=== PATIENT | male | born 1955 | race American Indian/Alaskan Native ===

== ENCOUNTER 2018-11-10 07:08 | Emergency (ER) | payer MEDICAID ==
[2018-11-10 07:21] VITALS: BMI 25.0
[2018-11-10 07:41] VITALS: RESP 18
[2018-11-10 08:22] LABS: BASO % 1.2 % (0.0-2.0); EOS # 0.1 K/uL (0.0-0.7); EOS % 2.9 % (0.0-4.0); LYMPH # 1.4 K/uL (1.0-4.3); LYMPH % 47.2 % (20.0-40.0); MEAN CELL VOLUME 86.9 fL (80.0-94.0); MEAN CORPUSCULAR HEMOGLOBIN 28.3 pg (27.0-31.0); MEAN CORPUSCULAR HGB CONC 32.6 g/dL (33.0-37.0); MEAN PLATELET VOLUME 7.8 fL (7.2-11.7); MONO # 0.5 K/uL (0.0-0.8); MONO % 17.1 % (0.0-10.0); NEUT # 0.9 K/uL (1.8-7.0); NEUT % 31.6 % (50.0-75.0); NRBC % 0.2 % (0.0-2.0); RBC 5.64 Mil/uL (4.40-5.90); RED CELL DISTRIBUTION WIDTH 13.7 % (11.5-14.5); WHITE BLOOD COUNT 2.9 K/uL (4.8-10.8)
[2018-11-10 08:42] LABS: SQUAMOUS EPITHIAL < 1 /hpf (0-5); URINE BILIRUBIN NEGATIVE (NEGATIVE); URINE BLOOD NEGATIVE (NEGATIVE); URINE CLARITY Hazy (Clear); URINE COLOR Yellow (YELLOW); URINE GLUCOSE (UA) NORMAL (Normal); URINE LEUKOCYTE ESTERASE NEG Leu/uL (Negative); URINE PROTEIN NEGATIVE (NEGATIVE)
[2018-11-10 08:52] LABS: ALB/GLOB RATIO 1.3 (1.0-2.1); ALBUMIN 4.2 g/dL (3.5-5.0); ALT/SGPT 22 U/L (21-72); AST/SGOT 29 U/L (17-59); BLOOD UREA NITROGEN 14 mg/dL (9-20); CALCIUM 9.1 mg/dl (8.6-10.4); GFR NON-AFRICAN AMERICAN > 60
[2018-11-10 09:21] LABS: B-TYPE NATRIURETIC PEPTIDE 55.3 pg/mL (0-900)
[2018-11-10 09:22] LABS: BARBITURATES, UR NEGATIVE (NEGATIVE); BENZODIAZEPINES, UR NEGATIVE (NEGATIVE); OPIATES, UR NEGATIVE (NEGATIVE); PHENCYCLIDINE, UR NEGATIVE (NEGATIVE)
[2018-11-10 09:34] VITALS: BP 116/74; PULSE 66; TEMP 98.5; O2SAT 97
--- NOTE | 2018-11-10 09:55 | C.PDOC ---
History Of Present Illness 63 y/o male,w/PMhx of asthma, presents to the ER complaining of runny nose and productive cough w/ yellow and brown phlegm which has been present for the past 3 days. Patient states that he has chest pain with cough. Patient reports that he has night sweats. He notes that he has history of smoking. Denies having fever,chills, SOB, nausea, vomiting, and abdominal pain. Time Seen by Provider: 11/10/18 07:32 Chief Complaint (Nursing): Chest Pain History Per: Patient History/Exam Limitations: no limitations Onset/Duration Of Symptoms: Days Current Symptoms Are (Timing): Still Present Severity: Moderate Past Medical History Reviewed: Historical Data, Nursing Documentation, Vital Signs Vital Signs: Last Vital Signs Temp 98.5 F 11/10/18 09:33 Pulse 66 11/10/18 09:33 Resp 18 11/10/18 09:33 BP 116/74 11/10/18 09:33 Pulse Ox 97 11/10/18 09:33 - Medical History PMH: Anxiety, Asthma, Depression, HTN, Hypercholesterolemia, Obstructive Bowel (SURGERY (1995)), Schizophrenia Other Surgeries: Hx of surgeries Family History: States: No Known Family Hx - Social History Hx Alcohol Use: No Hx Substance Use: Yes - Immunization History Hx Tetanus Toxoid Vaccination: No Hx Influenza Vaccination: No Hx Pneumococcal Vaccination: No Review Of Systems Except As Marked, All Systems Reviewed And Found Negative. Constitutional: Positive for: Sweats. Negative for: Fever, Chills Cardiovascular: Positive for: Chest Pain (with cough) Respiratory: Positive for: Cough. Negative for: Shortness of Breath Gastrointestinal: Negative for: Nausea, Vomiting, Abdominal Pain Physical Exam - Physical Exam Appears: Non-toxic, No Acute Distress Skin: Normal Color, Warm, Dry Head: Atraumatic, Normacephalic Eye(s): bilateral: Normal Inspection Nose: Normal Oral Mucosa: Moist Throat: Normal, No Erythema, No Exudate Neck: Supple Chest: Symmetrical Cardiovascular: Rhythm Regular Respiratory: Normal Breath Sounds, No Rales, No Rhonchi, No Wheezing Gastrointestinal/Abdominal: Normal Exam, Soft, No Tenderness, No Guarding, No Rebound Neurological/Psych: Oriented x3, Normal Speech ED Course And Treatment - Laboratory Results Result Diagrams: 11/10/18 08:13 11/10/18 08:13 Lab Results: Troponin I < 0.0120 ng/mL (0.00-0.120) 11/10/18 08:13 NT-Pro-B Natriuret Pep 55.3 pg/mL (0-900) 11/10/18 08:13 Total Bilirubin 0.8 mg/dL (0.2-1.3) 11/10/18 08:13 AST 29 U/L (17-59) 11/10/18 08:13 ALT 22 U/L (21-72) 11/10/18 08:13 Alkaline Phosphatase 57 U/L (38-126) 11/10/18 08:13 Total Protein 7.4 g/dL (6.3-8.3) 11/10/18 08:13 Albumin 4.2 g/dL (3.5-5.0) 11/10/18 08:13 Globulin 3.2 gm/dL (2.2-3.9) 11/10/18 08:13 Albumin/Globulin Ratio 1.3 (1.0-2.1) 11/10/18 08:13 Urine Color Yellow (YELLOW) 11/10/18 08:21 Urine Clarity Hazy (Clear) 11/10/18 08:21 Urine pH 7.0 (5.0-8.0) 11/10/18 08:21 Ur Specific [place] 1.020 (1.003-1.030) 11/10/18 08:21 Urine Protein Negative mg/dL (NEGATIVE) 11/10/18 08:21 Urine Glucose (UA) Normal mg/dL (Normal) 11/10/18 08:21 Urine Ketones Negative mg/dL (NEGATIVE) 11/10/18 08:21 Urine Blood Negative (NEGATIVE) 11/10/18 08:21 Urine Nitrate Negative (NEGATIVE) 11/10/18 08:21 Urine Bilirubin Negative (NEGATIVE) 11/10/18 08:21 Urine Urobilinogen 4.0 mg/dL (0.2-1.0) 11/10/18 08:21 Ur Leukocyte Esterase Neg Danilo/uL (Negative) 11/10/18 08:21 Urine WBC (Auto) 1 /hpf (0-5) 11/10/18 08:21 Urine RBC (Auto) < 1 /hpf (0-3) 11/10/18 08:21 Ur Squamous Epith Cells < 1 /hpf (0-5) 11/10/18 08:21 O2 Sat by Pulse Oximetry: 97 (RA) Pulse Ox Interpretation: Normal Medical Decision Making Medical Decision Making: Plan: --Labs --UA --CXR Disposition - Disposition Referrals: [facility] at [facility] [Outside] Prescriptions: Benzonatate [Tessalon Perles] 200 mg PO TID #15 sgl Ibuprofen [Motrin] 600 mg PO TID #15 tab Oseltamivir Phosphate [Tamiflu] 75 mg PO DAILY #10 capsule Instructions: Flu, Adult (DC) Forms: General Discharge Instructions, [facility] ([place]) - Clinical Impression Clinical Impression: Influenza-like symptoms - Scribe Statement The provider has reviewed the documentation as recorded by the Faraibe Marylou Lai Provider Attestation: All medical record entries made by the Scribe were at my direction and personally dictated by me. I have reviewed the chart and agree that the record accurately reflects my personal performance of the history, physical exam, m edical decision making, and the department course for this patient. I have also personally directed, reviewed, and agree with the discharge instructions and disposition.
--- NOTE | 2018-11-10 09:58 | C.PDOC ---
Time Seen by Provider: 11/10/18 07:32 Chief Complaint (Nursing): Chest Pain Past Medical History Vital Signs: Last Vital Signs Temp 98.5 F 11/10/18 09:33 Pulse 66 11/10/18 09:33 Resp 18 11/10/18 09:33 BP 116/74 11/10/18 09:33 Pulse Ox 97 11/10/18 09:33 - Medical History PMH: Anxiety, Asthma, Depression, HTN, Hypercholesterolemia, Obstructive Bowel (SURGERY (1995)), Schizophrenia - Social History Hx Alcohol Use: No Hx Substance Use: Yes - Immunization History Hx Tetanus Toxoid Vaccination: No Hx Influenza Vaccination: No Hx Pneumococcal Vaccination: No ED Course And Treatment - Laboratory Results Result Diagrams: 11/10/18 08:13 11/10/18 08:13 Lab Results: Troponin I < 0.0120 ng/mL (0.00-0.120) 11/10/18 08:13 NT-Pro-B Natriuret Pep 55.3 pg/mL (0-900) 11/10/18 08:13 Total Bilirubin 0.8 mg/dL (0.2-1.3) 11/10/18 08:13 AST 29 U/L (17-59) 11/10/18 08:13 ALT 22 U/L (21-72) 11/10/18 08:13 Alkaline Phosphatase 57 U/L (38-126) 11/10/18 08:13 Total Protein 7.4 g/dL (6.3-8.3) 11/10/18 08:13 Albumin 4.2 g/dL (3.5-5.0) 11/10/18 08:13 Globulin 3.2 gm/dL (2.2-3.9) 11/10/18 08:13 Albumin/Globulin Ratio 1.3 (1.0-2.1) 11/10/18 08:13 Urine Color Yellow (YELLOW) 11/10/18 08:21 Urine Clarity Hazy (Clear) 11/10/18 08:21 Urine pH 7.0 (5.0-8.0) 11/10/18 08:21 Ur Specific [place] 1.020 (1.003-1.030) 11/10/18 08:21 Urine Protein Negative mg/dL (NEGATIVE) 11/10/18 08:21 Urine Glucose (UA) Normal mg/dL (Normal) 11/10/18 08:21 Urine Ketones Negative mg/dL (NEGATIVE) 11/10/18 08:21 Urine Blood Negative (NEGATIVE) 11/10/18 08:21 Urine Nitrate Negative (NEGATIVE) 11/10/18 08:21 Urine Bilirubin Negative (NEGATIVE) 11/10/18 08:21 Urine Urobilinogen 4.0 mg/dL (0.2-1.0) 11/10/18 08:21 Ur Leukocyte Esterase Neg Danilo/uL (Negative) 11/10/18 08:21 Urine WBC (Auto) 1 /hpf (0-5) 11/10/18 08:21 Urine RBC (Auto) < 1 /hpf (0-3) 11/10/18 08:21 Ur Squamous Epith Cells < 1 /hpf (0-5) 11/10/18 08:21 O2 Sat by Pulse Oximetry: 97 Disposition Counseled Patient/Family Regarding: Studies Performed, Diagnosis, Need For Followup, Rx Given - Disposition Referrals: [facility] at [facility] [Outside] Disposition: HOME/ ROUTINE Disposition Time: 09:55 Condition: IMPROVED Prescriptions: Benzonatate [Tessalon Perles] 200 mg PO TID #15 sgl Ibuprofen [Motrin] 600 mg PO TID #15 tab Oseltamivir Phosphate [Tamiflu] 75 mg PO DAILY #10 capsule Instructions: Flu, Adult (DC) Forms: [facility] ([place]), General Discharge Instructions - POA Present On Arrival: None - Clinical Impression Clinical Impression: Influenza-like symptoms
--- NOTE | 2018-11-10 12:49 | RAD ---
HISTORY: SOB COMPARISON: None available TECHNIQUE: Chest PA and lateral FINDINGS: LUNGS: No focal consolidation. Please note that chest x-ray has limited sensitivity for the detection of pulmonary masses. PLEURA: No significant pleural effusion identified. No definite pneumothorax . CARDIOVASCULAR: Heart size appears within normal limits. No atherosclerotic calcification present. OSSEOUS STRUCTURES: Mild degenerative changes of the spine. VISUALIZED UPPER ABDOMEN: Unremarkable. OTHER FINDINGS: None. IMPRESSION: No focal consolidation.
--- NOTE | 2018-11-12 21:54 | CARD ---
APPROVED REPORT Date of service: 11/10/2018 EKG Measurement Heart [id number] <Conclusion> Sinus rhythm with short HI Minimal voltage criteria for LVH, may be normal variant Possible Acute pericarditis vs early repolarization changes Abnormal ECG
== END 2018-11-10 10:07 | disposition home or self-care (01) ==
LOC: C.ER 07:08
DX: J11.1 Influenza due to unidentified influenza virus with other respiratory manifestations (principal); E78.00 Pure hypercholesterolemia, unspecified; F20.9 Schizophrenia, unspecified; I10 Essential (primary) hypertension; Z87.891 Personal history of nicotine dependence